=== PATIENT | female | born 1970 | race Caucasian/White ===

== ENCOUNTER → 2017-03-27 | Outpatient (CLI) | payer OTHER ==
[~2017-03-27] MED LIST: AMRIX15 MG PO; CYANOCOBAL1000 MCG/2 IM; CYMBALTA60 MG PO; LYRICA200 MG PO; NORTRIPTYLINE H10 MG PO; NUCYNTA50 MG PO; PREMARIN1.25 MG PO; PROPRANOLOL HCL60 M1 PO; SUMATRIPTAN SU100 MG PO
== END | disposition home or self-care (01) ==
LOC: RAD 11:01
DX: N21.0 Calculus in bladder (principal); N28.89 Other specified disorders of kidney and ureter; Z87.442 Personal history of urinary calculi
CPT/HCPCS: 74018; 74176